=== PATIENT | female | born 1995 | race Caucasian/White ===

== ENCOUNTER 2017-01-14 17:48 | Emergency (ER) | payer BC, OTHER ==
[~2017-01-14] VITALS: Ht 165.1 cm; Wt 50.4 kg
[2017-01-14 17:54] VITALS: Ht 165.1 cm; Wt 50.4 kg
[2017-01-14] MEDS ORDERED: RABIES VACCINE (IMOVAX) HUMAN DIPL CELL 2.5 INTER.UNIT/ML SYR IM. ONE (19:15)
[2017-01-14] MEDS ORDERED: RABIES IMMUNE GLOBULIN (HUMAN) 150 INTER.UNIT/ML 2 ML VIAL IM. ONE (19:15)
--- NOTE | 2017-01-14 19:15 | EMERGENCY ROOM VISIT NOTE ---
ED Visit Note First contact with patient: 18:49 CHIEF COMPLAINT: Awoke 3 days ago with bad and bedroom, patient desiring rabies prophylaxis HISTORY OF PRESENT ILLNESS: This 21-year-old female patient presents to the emergency department ambulatory, with her significant other and her son. There is concern for rabies exposure as the patient awoke 3 days ago and found a bat in her bedroom. The patient is unaware of a specific bite. The patient's son in here 2 days ago for rabies prophylaxis. The bat was taken to [facility] lab for testing, however testing was indeterminate for rabies. The patient denies any symptoms at this time including fatigue, nausea, vomiting, headaches, confusion , altered mental status, lightheadedness, dizziness, syncope, and others. REVIEW OF SYSTEMS: A 6 system review of systems was completed with positives and pertinent negatives listed in the HPI. ALLERGIES: None MEDICATIONS: Sprintec PMH: None. SOCIAL HISTORY: Lives locally with her family. She denies drug, alcohol, tobacco use. PHYSICAL EXAM: Vital Signs: Reviewed Nurse's notes, vital signs stable. GENERAL : 21-year-old female, in no acute distress, well-developed, well-nourished. HEAD: Atraumatic, without temporal or scalp tenderness. EYES: PERRLA, EOMI, no discharge or injection. SKIN: [place], warm, dry. No diaphoresis or cyanosis noted. No bite wounds or open areas on the skin. Capillary refill less than 2 seconds. NEUROLOGICAL: Alert and oriented to person place and time. Normal sensation to light and sharp touch. MUSCULOSKELETAL: Motor functions grossly intact. Full range of motion in all extremities. EMERGENCY DEPARTMENT COURSE: I examined the patient. I discussed the patient current CDC recommendations regarding rabies prophylaxis. The patient does decide to go forward with prophylaxis at this time. The patient was given RIG 20 Units/kg, 1000IU. The patient was given Imovax 1ml IM. The patient was observed for 20 minutes with no reaction. The patient was discharged home in stable condition. DIAGNOSIS: Rabies prophylaxis DISCHARGE INSTRUCTIONS: Today is day 0. Return to the ER on days 3, 7, and 14 for subsequent vaccinations. You should return on 01/17/17, 01/21/17, 01/28/17. Return sooner or follow up with your family doctor for signs of infection ( increased redness, discharge, fever) or for complications with the vaccine series. Current/Historical Medications Scheduled Control Pills ( Control Pills), 1 TAB PO DAILY Allergies Coded Allergies: No Known Allergies (Unverified , 01/14/17) Vital Signs Date Time Temp Pulse Resp B/P (MAP) Pulse Ox O2 Delivery O2 Flow Rate FiO2 01/14/17 19:52 36.8 88 18 111/66 98 01/14/17 19:49 88 18 111/66 98 Room Air 01/14/17 17:54 36.8 92 18 111/79 98 Room Air Medications Administered Medications (Trade) Dose Ordered Sig/Prudence Route Start Time Stop Time Status Last Admin Dose Admin Rabies Vaccine Human Diploid Cell (Imovax Rabies) 2.5 interunit ONCE ONCE IM. 01/14/17 19:15 01/14/17 19:16 DC 01/14/17 19:32 2.5 INTERUNIT Rabies Immune Globulin (Imogam Rabies Inj) 1,000 interunit ONCE ONCE IM. 01/14/17 19:15 01/14/17 19:16 DC 01/14/17 19:36 1,000 INTERUNIT Departure Information Impression Primary Impression: Rabies, need for prophylactic vaccination against Dispostion Home / Self-Care Condition GOOD Referrals No Doctor, Assigned (PCP) Patient Instructions My [facility], Rabies Immune Globulin human RIG solution for injection , Rabies Vaccine suspension for injection Additional Instructions Today is day 0. Return to the ER on days 3, 7, and 14 for subsequent vaccinations. You should return on 01/17/17, 01/21/17, 01/28/17. Return sooner or follow up with your family doctor for signs of infection (increased redness, discharge, fever) or for complications with the vaccine series.
[2017-01-14 19:52] VITALS: BP 111/66; PULSE 88; TEMP 36.8; O2SAT 98
== END 2017-01-14 20:00 | disposition home or self-care (01) ==
LOC: C.EDB 17:49 → C.EDD 20:00
DX: Z23 Encounter for immunization (principal); Z20.3 Contact with and (suspected) exposure to rabies

== ENCOUNTER 2017-01-17 13:56 | Emergency (ER) | payer BC, OTHER ==
[~2017-01-17] VITALS: Ht 165.1 cm; Wt 49.7 kg
[2017-01-17 14:06] VITALS: BP 96/68; PULSE 99; TEMP 36.8; O2SAT 99; Ht 165.1 cm; Wt 49.7 kg
[2017-01-17] MEDS ORDERED: RABIES VACCINE (IMOVAX) HUMAN DIPL CELL 2.5 INTER.UNIT/ML SYR IM. ONE (14:30)
--- NOTE | 2017-01-17 20:22 | EMERGENCY ROOM VISIT NOTE ---
ED Visit Note First contact with patient: 14:12 CHIEF COMPLAINT: Rabies prophylaxis HISTORY OF PRESENT ILLNESS: This 21-year-old female patient presents to the emergency department for their second rabies shot. The patient has not had any complications from the previous injections. They deny any other complaints. REVIEW OF SYSTEMS: A 6 system review of systems was completed with positives and pertinent negatives listed in the HPI. ALLERGIES: Known allergies MEDICATIONS: No chronic medications PMH: Unchanged from previous visit. PHYSICAL EXAM: Vital Signs: Reviewed Nurse's notes, vital signs stable. GENERAL : White female, in no acute distress, well-developed, well-nourished. HEAD: Atraumatic, without temporal or scalp tenderness. EYES: PERRLA, EOMI, no discharge or injection. SKIN: Normal. NEUROLOGICAL: Alert and cooperative. Sensory and motor functions grossly intact. EMERGENCY DEPARTMENT COURSE: I examined the patient. The patient was given Imovax 1ml IM. The patient was observed for 20 minutes with no reaction. The patient was discharged home in stable condition. Current/Historical Medications Scheduled Control Pills ( Control Pills), 1 TAB PO HS Allergies Coded Allergies: No Known Allergies (Unverified , 01/17/17) Vital Signs Date Time Temp Pulse Resp B/P (MAP) Pulse Ox O2 Delivery O2 Flow Rate FiO2 01/17/17 14:06 36.8 99 18 96/68 99 Room Air Medications Administered Medications (Trade) Dose Ordered Sig/Prudence Route Start Time Stop Time Status Last Admin Dose Admin Rabies Vaccine Human Diploid Cell (Imovax Rabies) 2.5 interunit ONCE ONCE IM. 01/17/17 14:30 01/17/17 14:31 DC 01/17/17 14:31 2.5 INTERUNIT Departure Information Impression Primary Impression: Need for post exposure prophylaxis for rabies Dispostion Home / Self-Care Condition GOOD Forms HOME CARE DOCUMENTATION FORM, IMPORTANT VISIT INFORMATION Patient Instructions My [facility] Additional Instructions Continue your rabies immunization series as previously directed.
== END 2017-01-17 14:38 | disposition home or self-care (01) ==
LOC: C.EDB 13:57 → C.EDD 14:38
DX: Z23 Encounter for immunization (principal); Z20.3 Contact with and (suspected) exposure to rabies

== ENCOUNTER 2017-01-21 16:59 | Emergency (ER) | payer BC, OTHER ==
[~2017-01-21] VITALS: Ht 165.1 cm; Wt 50.7 kg
[2017-01-21 17:02] VITALS: TEMP 37; Ht 165.1 cm; Wt 50.7 kg
[2017-01-21] MEDS ORDERED: CLIN300C2 PO (17:20)
[2017-01-21] MEDS ORDERED: RABIES VACCINE (IMOVAX) HUMAN DIPL CELL 2.5 INTER.UNIT/ML SYR IM. ONE (18:00)
[2017-01-21 18:14] VITALS: BP 119/71; PULSE 69; O2SAT 98
[2017-01-21] MEDS ORDERED: BCPILLS PO (18:59)
--- NOTE | 2017-01-21 21:37 | EMERGENCY ROOM VISIT NOTE ---
ED Visit Note First contact with patient: 17:06 CHIEF COMPLAINT: Rabies vaccination. HISTORY OF PRESENT ILLNESS: Ms. Arce is a 21-year-old white female who ambulates into the ED requesting her third rabies vaccination. Patient reports she has not had any side effect or complications from her previous rabies vaccinations. Additionally she reports she is feeling well and denies fevers, chills, sweats, joint pains, chest pain, shortness of breath, abdominal pain, nausea/vomiting, decreased appetite. REVIEW OF SYSTEMS: As noted above in History of Present Illness. PHYSICAL EXAM: Vital Signs: Date Time Temp Pulse Resp B/P (MAP) Pulse Ox O2 Delivery O2 Flow Rate FiO2 01/21/17 18:14 69 16 119/71 98 01/21/17 17:02 37.0 96 16 120/78 98 Room Air GENERAL: 21-year-old white female in no acute distress, nontoxic-appearing, afebrile and hemodynamically stable. NEUROLOGICAL: Awake, alert and oriented to person, place and time. Answering questions appropriately and following commands. Normal gait. SKIN: Warm, dry and pink. EMERGENCY DEPARTMENT COURSE: Patient is assessed as noted above. Patient was given 2.5 interunits of rabies vaccination IM. Patient was educated about today's findings and instructed on her treatment plan ; she verbalized understanding and agreement with this plan. CLINICAL IMPRESSION: Post exposure rabies prophylaxis. DISPOSITION: Patient discharged to home in stable condition; prior to discharge she was reassessed and reported that she was pain and symptom-free. PLAN: Patient was encouraged to continue her current treatment plan from her previous immunizations and keep her current immunizations schedule. Patient was encouraged return the ED sooner for any reaction to her medications , abnormal symptoms or any new/concerning symptoms.
== END 2017-01-21 18:15 | disposition home or self-care (01) ==
LOC: C.EDB 17:02 → C.EDD 18:15
DX: Z23 Encounter for immunization (principal); Z20.3 Contact with and (suspected) exposure to rabies

== ENCOUNTER 2017-01-28 15:17 | Emergency (ER) | payer BC, OTHER ==
[~2017-01-28] VITALS: Ht 165.1 cm; Wt 51.2 kg
[~2017-01-28 15:17] MED LIST: BCPILLS PO; CLIN300C2 PO
[2017-01-28 15:20] VITALS: TEMP 36.9; Ht 165.1 cm; Wt 51.2 kg
--- NOTE | 2017-01-28 15:43 | EMERGENCY ROOM VISIT NOTE ---
ED Visit Note First contact with patient: 15:24 CHIEF COMPLAINT: Rabies prophylaxis HISTORY OF PRESENT ILLNESS: This 21-year-old female patient presents to the emergency department ambulatory for their last rabies shot. The patient has not had any complications from the previous injections. They deny any other complaints. REVIEW OF SYSTEMS: A 6 system review of systems was completed with positives and pertinent negatives listed in the HPI. ALLERGIES: No known drug allergies MEDICATIONS: Unchanged from previous PMH: Unchanged from previous visit. PHYSICAL EXAM: Vital Signs: Reviewed Nurse's notes, vital signs stable. GENERAL : The 21-year-old female, in no acute distress, well-developed, well-nourished. HEAD: Atraumatic, without temporal or scalp tenderness. EYES: PERRLA, EOMI, no discharge or injection. SKIN: Normal. NEUROLOGICAL: Alert and cooperative. Sensory and motor functions grossly intact. EMERGENCY DEPARTMENT COURSE: I examined the patient. The patient was given Imovax 1ml IM. The patient was observed for 20 minutes with no reaction. The patient was discharged home in stable condition. DIAGNOSIS: Rabies prophylaxis DISCHARGE INSTRUCTIONS: Return for any complications. Current/Historical Medications Scheduled Control Pills ( Control Pills), 1 TAB PO HS Allergies Coded Allergies: No Known Allergies (Unverified , 01/28/17) Vital Signs Date Time Temp Pulse Resp B/P (MAP) Pulse Ox O2 Delivery O2 Flow Rate FiO2 01/28/17 16:00 71 98/66 99 01/28/17 15:20 36.9 79 20 113/68 97 Room Air Medications Administered Medications (Trade) Dose Ordered Sig/Prudence Route Start Time Stop Time Status Last Admin Dose Admin Rabies Vaccine Human Diploid Cell (Imovax Rabies) 2.5 interunit ONCE ONCE IM. 01/28/17 15:45 01/28/17 15:46 DC 01/28/17 15:41 2.5 INTERUNIT Departure Information Impression Primary Impression: Rabies, need for prophylactic vaccination against Dispostion Home / Self-Care Condition GOOD Referrals No Doctor, Assigned (PCP) Patient Instructions [facility] Additional Instructions Return for any complications
[2017-01-28] MEDS ORDERED: RABIES VACCINE (IMOVAX) HUMAN DIPL CELL 2.5 INTER.UNIT/ML SYR IM. ONE (15:45)
[2017-01-28 16:00] VITALS: BP 98/66; PULSE 71; O2SAT 99
== END 2017-01-28 16:01 | disposition home or self-care (01) ==
LOC: C.EDB 15:18 → C.EDD 16:01
DX: Z23 Encounter for immunization (principal); Z20.3 Contact with and (suspected) exposure to rabies